=== PATIENT | female | born 1980 | race Caucasian/White ===

== ENCOUNTER 2017-08-20 07:31 | Emergency (ER) | payer MEDICAID ==
[~2017-08-20] VITALS: Ht 152.4 cm; Wt 69.0 kg
[~2017-08-20 07:31] MED LIST: AMOXICILLIN/CL875 MG OR; AMOXICILLIN500 MG OR; AMOXICILLIN500 MG PO; AUGMENTIN875 MG PO; AUGMENTIN875TAB OR; AUGMENTIN875TAB PO; BIRTH CONTROL PILL; CEPHALEXIN500 M1 OR; DEPO-MEDROL80 MG/ML IM; DIFLUCAN150 MG PO; FLEXERIL OR; FLONASE NASAL50 MCG; FLUARIX QUADRIV1 INJ IM; HYDROXYZ HCL25 MG PO; IBUPROFEN800 MG PO; KETOCONAZOLE2 % EX; LO LOESTRIN; LORTAB5 OR; LORTAB5 PO; MEDDOSEPAK OR; MEDDOSEPAK PO; MUCINEX600 MG PO; NAPROSYN500 MG OR; NAPROSYN500 MG PO; NO HOME MEDS; OMEGA 31000 MG PO; PAROXETINE20 MG PO; PRENATA4 OR; PRENATABS OR; PROAIR HFA IN; ROCEPHIN 2250 MG/VIA IM; TAM75CAP OR; TOBREX OPTH DROP5 ML OP; TYLENOL & COD12.5 ML OR; TYLENOL325 MG OR; ULTRAM50 M1 OR; ZITHROMAX500 MG PO; ZOFRAN ODT4 MG PO; ZYRTEC10 MG PO
[2017-08-20] MEDS ORDERED: MOTRIN800 MG PO (08:00)
[2017-08-20 08:04] VITALS: BP 125/88
== END 2017-08-20 08:10 | disposition home or self-care (01) | DRG 558 ==
LOC: ED 07:31
DX: M65.4 Radial styloid tenosynovitis [de Quervain] (principal); M25.532 Pain in left wrist